=== PATIENT | female | born 1935 | race Caucasian/White ===

== ENCOUNTER → 2023-12-09 | Outpatient (CLI) | payer MEDICARE ==
[2023-12-10 00:14] LABS: CORTISOL, AM (0800) 8 ug/dL (3-20); DHEA (SULFATE) 45 mcg/dL (34-79)
== END ==
LOC: COL.LAB 09:39
PROVIDERS: Internal Medicine Endocrinology, Diabetes & Metabolism
DX: Z01.89 Encounter for other specified special examinations (principal)